=== PATIENT | female | born 1960 | race Native Hawaiian/Other Pacific Islander ===

== ENCOUNTER 2016-07-17 14:50 | Outpatient (CLI) | payer OTHER | END 2016-07-17 23:08 | disposition home or self-care (01) | LOC: RESP 14:50 | DX: I49.9 Cardiac arrhythmia, unspecified (principal) | CPT/HCPCS: 93225 ==

== ENCOUNTER 2016-07-26 13:32 | Outpatient (CLI) | payer OTHER | END 2016-07-26 20:14 | disposition home or self-care (01) | LOC: LAB 13:32 | DX: R19.7 Diarrhea, unspecified (principal); R11.2 Nausea with vomiting, unspecified | CPT/HCPCS: 87045; 87205; 87328; 87329; 87493; 87798; 87899 ==

== ENCOUNTER 2017-01-16 14:31 | Outpatient (CLI) | payer OTHER | END 2017-01-16 15:35 | disposition home or self-care (01) | LOC: RAD 14:31 | DX: S09.8XXA Other specified injuries of head, initial encounter (principal) ==

== ENCOUNTER 2017-08-10 12:14 | Outpatient (CLI) | payer OTHER | END 2017-08-10 19:40 | disposition home or self-care (01) | LOC: RAD 12:14 | DX: R05 Cough (principal) ==

== ENCOUNTER 2017-12-11 08:54 | Outpatient (CLI) | payer OTHER | END 2017-12-11 22:14 | disposition home or self-care (01) | LOC: RAD 08:54 | DX: M54.2 Cervicalgia (principal) ==

== ENCOUNTER 2019-06-10 09:11 | Outpatient (CLI) | payer OTHER | END 2019-06-10 20:07 | disposition home or self-care (01) | LOC: RAD 09:11 | DX: M54.5 Low back pain (principal) ==

== ENCOUNTER 2020-11-19 10:00 | Outpatient (CLI) | payer OTHER ==
[2020-11-19 10:23] LABS: PLATELET COUNT 208 K/uL (152-353)
[2020-11-19 11:11] LABS: POTASSIUM 4.5 mmol/L (3.6-5.2)
== END 2020-11-19 22:55 | disposition home or self-care (01) ==
LOC: LABW 10:00 → CT 10:00 → RESP 10:00 → LABW 22:55
PROVIDERS: ATTEND Nurse Practitioner Family
DX: R06.02 Shortness of breath (principal); R11.2 Nausea with vomiting, unspecified; R19.7 Diarrhea, unspecified; R00.0 Tachycardia, unspecified; N28.1 Cyst of kidney, acquired
CPT/HCPCS: 36415; 80053; 82150; 83690; 85027; 93005; Q9963

== ENCOUNTER 2021-06-22 15:52 | Outpatient (CLI) | payer OTHER ==
[2021-06-22 16:04] LABS: PLATELET COUNT 257 K/uL (152-353)
[2021-06-22 16:10] LABS: POTASSIUM 3.2 mmol/L (3.6-5.2)
== END 2021-06-22 21:27 | disposition home or self-care (01) ==
LOC: LABW 15:52
PROVIDERS: ATTEND Specialist
DX: Z01.810 Encounter for preprocedural cardiovascular examination (principal); R94.39 Abnormal result of other cardiovascular function study
CPT/HCPCS: 36415; 80048; 85027

== ENCOUNTER 2021-07-04 11:50 | Outpatient (CLI) | payer OTHER ==
[2021-07-04 12:23] LABS: PLATELET COUNT 228 K/uL (152-353)
[2021-07-04 12:56] LABS: POTASSIUM 4.3 mmol/L (3.6-5.2)
[2021-07-04 13:04] LABS: PARTIAL THROMBOPLASTIN TIME 21.3 SECONDS (24.5-33.6)
== END 2021-07-04 19:54 | disposition home or self-care (01) ==
LOC: LABW 11:50
PROVIDERS: ATTEND Nurse Practitioner Family
DX: M25.561 Pain in right knee (principal)
CPT/HCPCS: 36415; 80053; 81000; 85027; 85610; 85730; 86769